=== PATIENT | male | born 1960 | race Caucasian/White ===

== ENCOUNTER → 2016-11-08 | Outpatient (CLI) | payer BC ==
[~2016-11-08] MED LIST: AMT10 PO; LORA-741 PO; LSN/2025 PO; MIRT15TA2 PO; OMEP40CA PO; OPTIRAY 320 IV PRN; SIMV10TA2 PO
--- NOTE | 2016-11-08 13:22 | DIAGNOSTIC IMAGING REPORT ---
CT SCAN OF THE CHEST, ABDOMEN, AND PELVIS WITH IV CONTRAST CLINICAL HISTORY: Pulmonary nodules. Hepatic nodules. COMPARISON STUDY: Chest x-ray dated 03/13/2014. Abdominal CT dated 10/28/2015. TECHNIQUE: Following the IV administration of 119 of Optiray 320, CT scan of the chest, abdomen, and pelvis was performed from the thoracic inlet to the proximal femora. Images are reviewed in the axial, sagittal, and coronal planes. IV contrast was administered without complication. Automated dose control exposure was utilized. CT DOSE: 897.00 mGy.cm FINDINGS: CHEST: Thyroid: Imaged portions of the thyroid gland are normal in size and attenuation. Thoracic aorta: The thoracic aorta is normal in caliber and demonstrates standard 3-vessel arch anatomy. No dissection is seen. Pulmonary vasculature: The pulmonary trunk is normal in caliber. There are no filling defects identified in the central pulmonary vessels to indicate pulmonary was. Note that this examination was not protocoled for evaluation of the pulmonary arteries. Heart: The heart is normal in size and configuration, and without pericardial effusion. There are coronary artery calcifications. Lungs and pleural spaces: There is no airspace consolidation or pleural effusion. Dependent atelectasis is observed. A 3 mm right lower lobe pulmonary nodule is seen on image #150. This is unchanged from 10/28/2015. There is a 3 mm focus of pleural based nodularity in the left lower lobe on image #121 along the major fissure. Trachea and central airways are clear. Mediastinum: There is no mediastinal lymphadenopathy. Elli: Clear. Axillae: There is no axillary lymphadenopathy. Bony thorax: No lytic or blastic lesions are identified. Arthritic change is noted in the shoulders. ABDOMEN AND PELVIS: Liver: The contrast-enhanced liver is normal in size and contour. The liver demonstrates diffusely diminished attenuation consistent with hepatic steatosis. Fatty sparing is noted adjacent to gallbladder fossa. There is an 8 mm indeterminate hypodensity in the left lobe of liver seen on image #79. This likely represents a cyst but is too small for definitive characterization, and this is unchanged from 10/28/2015. A 10 mm hypodensity in the left lobe seen on image #69 was better seen previously. This is most completely filled in with contrast on today's study. This lesion is indeterminant but likely represents a small flash filling hemangioma. There is no intrahepatic or ductal dilatation. The hepatic veins and portal veins are patent. Gallbladder: Unremarkable. Spleen: Normal in size and attenuation. Pancreas: Unremarkable. Adrenal glands: Unremarkable. Kidneys: The contrast enhanced kidneys are normal in size and without hydronephrosis. The kidneys enhance symmetrically. A subcentimeter cortical hypodensity in the lower pole of the left kidney on image #184 likely represents a cyst but is too small for definitive characterization. Abdominal vasculature: The abdominal aorta is normal in course and caliber noting scattered foci of atherosclerotic calcification. Stomach and bowel: There is a small hiatal hernia. The stomach and duodenum otherwise normal in configuration. No bowel obstruction is seen caliber. The appendix is not identified and reported surgically absent. Peritoneum: There is no intraperitoneal free air or abdominal ascites. There is a small fat-containing umbilical hernia. Lymphadenopathy: None. Pelvic viscera: The bladder, prostate, and seminal vesicles are normal as visualized. Surgical clips are noted along the spermatic cord bilaterally. Skeletal structures: No lytic or blastic lesions are seen. A large hemangioma is noted in the body of L3. IMPRESSION: 1. There is no airspace consolidation or pleural effusion. 2. There are 2 indeterminant but low suspicion pulmonary and pleural-based nodules as detailed above measuring up to 3 mm. The right lower lobe nodule is unchanged from the 10/28/2015 examination. The left lower lobe nodule was not included on the previous abdominal CT. These can be followed as per the Fleischner criteria if clinically warranted. See below. 3. Mild hepatic steatosis. 4. There are 2 indeterminant hypodensities in the left lobe of the liver which are incompletely characterized. The larger 10 mm lesion has largely filled in with IV contrast and although incompletely characterized this likely represents a small hemangioma. The 8 mm hypodensity likely represents a cyst but is too small for definitive characterization. These are of low suspicion. 5. No acute infectious or inflammatory findings are seen in the abdomen or pelvis. 6. Additional findings as above. Please refer to below summary of Fleischner criteria recommendations for follow-up of incidental CT nodules (Corry Mitchell, Guidelines for management of small pulmonary nodules detected on CT scans: A statement from the Fleischner Society, Radiology 237: [phone].) Low Risk Patient: Minimal or no smoking or other known risk factors for malignancy <=4 mm: No follow-up needed. >4-6 mm: Initial follow-up CT at 12 months; if unchanged, no further follow-up. >6-8 mm: Initial follow-up CT at 6-12 months then at 18-24 months if no change. >8 mm: Follow-up CT at \R\3, 9, 24 months, or PET and/or biopsy. High Risk Patient: History of smoking or other known risk factors <=4 mm: Follow-up at 12 months; if unchanged, no further follow-up. >4-6 mm: Initial follow-up CT at 6-12 months then at 18-24 months if no change. >6-8 mm: Initial follow-up CT at 3-6 months then at 9-12 and 24 months if no change. >8 mm: Same as low risk patient. Note: Nodule size measured as average of length and width. Ground glass or partly solid nodules may require longer follow-up to exclude indolent adenocarcinoma. Electronically signed by: Wil Rahman M.D. 11/08/2016 1:21 PM Dictated Date/Time: 11/08/2016 1:01 PM
== END | disposition home or self-care (01) ==
LOC: C.CTS 12:26
DX: R91.1 Solitary pulmonary nodule (principal); D13.4 Benign neoplasm of liver

== ENCOUNTER → 2017-05-07 | Outpatient (CLI) | payer BC ==
[~2017-05-07] MED LIST changes: -OPTIRAY 320 IV PRN
--- NOTE | 2017-05-07 11:26 | DIAGNOSTIC IMAGING REPORT ---
LEFT HAND MIN 3 VIEWS ROUTINE CLINICAL HISTORY: ARTHRITIS COMPARISON: None. DISCUSSION: The bony mineralization appears normal. No acute fractures are visualized. There are mild osteoarthritic type changes most pronounced the level of the proximal interphalangeal joints. There is a 2 mm particular calcification at the level of the proximal to phalangeal joint of the middle finger. There is no erosive disease. IMPRESSION: 1. No acute fractures 2. Mild osteoarthritic change 3. No evidence of erosive disease Electronically signed by: Mango Sweeney M.D. 05/07/2017 11:25 AM Dictated Date/Time: 05/07/2017 11:24 AM
--- NOTE | 2017-05-07 11:34 | DIAGNOSTIC IMAGING REPORT ---
RIGHT HAND MIN 3 VIEWS ROUTINE CLINICAL HISTORY: Arthritis. Right hand pain COMPARISON: None. DISCUSSION: No acute fractures are visualized. The bony mineralization appears normal. There is no erosive disease. There are mild osteoarthritic type changes most pronounced the level of the first metacarpal phalangeal joint and first carpal metacarpal joint. There is a tiny radiopaque foreign body located within the webspace between the first and second fingers. IMPRESSION: 1. No acute fractures 2. Mild degenerative change 3. No evidence of erosive disease 4. Tiny foreign body located within the webspace between the thumb and index finger. Electronically signed by: Mango Sweeney M.D. 05/07/2017 11:33 AM Dictated Date/Time: 05/07/2017 11:31 AM
== END | disposition home or self-care (01) ==
LOC: C.RAD1850 11:01
DX: M19.041 Primary osteoarthritis, right hand (principal); M19.042 Primary osteoarthritis, left hand

== ENCOUNTER → 2017-07-08 | Outpatient (CLI) | payer BC ==
--- NOTE | 2017-07-09 06:28 | PAP/PSG TECHNICIAN REPORT ---
[facility] Registered Dietician Polysomnogram Report Study name: None Report date: 07/09/2017 Study date: 07/08/2017 Referring Physician: Arley Espinoza MD Name: MADHAV TRINH Interpreting Physician: Awais Navarro M.D. Date of : 1960 Registered Dietician: Janny Cisneros RPSGT. Sex: Male Age: 56 Study Type: PSG Weight: 189.82 lbs Height: 56 years, Height 5' 8.5" BMI: 28.44 Medications: AMITRIPTYLINE 10 MG, CLONZEPAM 1 MG, LISINOPRIL-HYDOCHLOROTHIAZIDE 20-25 MG, MIRTAZAPINE 15 MG, OMEPRAZOLE 40 MG, RANITIDINE 300 MG, SIMVASTATIN 10 MG, VYVANSE 30 MG Patient History 56 yr-old male here for a baseline study. He has had previous sleep testing. He was found to have RLS and PLMs and was prescribed Clonazepam. He is continuing to have problems with polycythemia. He is back to assess any CM he may have. His Center scale is 7. The test was started on room air. ETCO2 testing was not utilized during this study. Room 3 Parameters Monitored NPSG: E1-M2, E2-M1, Fp1-M2, Fp2-M1, F3-M2, F4-M2, F4-M1, C3-M2, C4-M2, C4-M1, O1-M2, O2-M2, O2-M1, T3-M2, T4-M1, P3-M2, P4-M1, CHIN1, CHIN2, HR, EKG, Legs, PFLOW, SNOR, FLOW, CFLOW, Tidal Volume, THOR, ABDO, SpO2, PLTH, CPRESS, ETCO2 Wave, ETCO2, pH Sleep Architecture Sleep Stages Time at Lights Off 10:44:48 PM STAGES Time (min.) TST (%) Time at Lights On 5:29:18 AM Wake 35.5 -- Total Recording Time (TRT) 404.50 min. N1 62.0 17 Total Sleep Period (TSP) 386.5 min. N2 274.0 74 Total Sleep Time (TST) 369.0min. N3 0.0 0 Awake Time 35.5 min. REM 33.0 9 Wake after Sleep Onset 17.5 min. Sleep Efficiency (SE) 91 % Sleep Onset Latency (RIN) 18.0 min. Number of Stage 1 Shifts None Awakenings 19 Stage Changes 118 Number of REM periods 5 REM 33.0 9 REM Latency 269.0 min. NREM 336.0 91 Body Position Analysis Supine Right Left Side Prone Vertical Total Sleep Time (min.) 6.5 319.5 46.5 366.00 0.0 6.2 Total Sleep Time (%) 1% 87% 13% 99 0% N/A% Total Sleep Time REM (min.) 0.0 33.0 0.0 None 0.0 0.0 Total Sleep Time NREM (min.) 3.0 286.5 46.5 None 0.0 0.0 Intermittent Wake (min.) 3.5 20.2 5.6 None 0.0 6.2 Total Sleep Period (%) 2% None None None None None Arousals Myoclonus (PLM) * Events Count Index Events Count Index Spontaneous 32 5 Events Awake (PLMW) 30 50.7 Respiratory 0 0.0 Events Asleep w/ Arousal (PLMA) 55 8.9 PLM 55 9 Events Asleep w/o Arousal (PLMS) 85 13.8 Snoring 3 0 Total Asleep 140 22.8 Total 90 15 Total 170 25 Respiratory Analysis * CA OA MA CH H RERA Total Count 0 0 0 0 1 0 1 Index 0.0 0.0 0.0 0 0.2 0 0.2 Mean Duration 0.0 0.0 0.0 0.00 21.9 0.0 21.9 Longest Duration 0.0 0.0 0.0 0.00 0.0 0.0 21.9 Respiratory Event Summary Total Supine ~Supine Right Left Prone REM NREM Apneas Count 0 0 0 0 0 N/A 0 0 Index 0.0 0 0 0.0 0.0 N/A 0 0 Hypopneas (4% Desat) Count 1 0 1 1 0 N/A 0 1 Index 0.2 0.0 0 0.2 0.0 N/A 0.0 0.2 Apneas & All Hypopneas Count 1 0 1 1 0 N/A 0 1 Index 0.2 0 0 0 0 N/A 0.0 0.2 Respiratory Events (Hand Box Coverer+All Hyp+RERA) Count 1 0 1 1 0 N/A 0 1 Index 0.2 0 0 0.2 0.0 N/A 0.0 0.2 Respiratory Related Arousal Count 0 0 0 0 0 N/A 0 0 Index 0.0 0 0 0 0 N/A 0 0 Snoring Analysis Supine Right Left Prone REM NREM Total Snore duration 1.1 min Snores count 0 22 4 N/A 2 24 26 Snore mean duration 2.5 Sec Snores index 0 4 5 N/A 3.6 4.3 4.2 TST with snoring (%) 0.3% Desaturation Event Summary: Minimum %SpO2 Event Count Mean/Min/Max Duration(sec.) Desaturation Index % Time In Bed > 90 9 36.0 / 8.5 / 58.0 1.4 98.3 86 - 90 0 N/A 0.0 1.7 81 - 85 0 N/A 0.0 0.0 76 - 80 0 N/A 0.0 0.0 71 - 75 0 N/A 0.0 0.0 66 - 70 0 N/A 0.0 0.0 61 - 65 0 N/A 0.0 0.0 56 - 60 0 N/A 0.0 0.0 51 - 55 0 N/A 0.0 0.0 < 50 0 N/A 0.0 0.0 Total REM NREM Awake <50% 0.0 min. 0.0 min. 0.0 min. 0.0 min. 51 - 60% 0.0 min. 0.0 min. 0.0 min. 0.0 min. 61 - 70% 0.0 min. 0.0 min. 0.0 min. 0.0 min. 71 - 80% 0.0 min. 0.0 min. 0.0 min. 0.0 min. 81 - 90% 7.0 min. 0.4 min. 3.2 min. 3.3 min. 91 - 100% 397.4 min. 32.6 min. 332.6 min. 32.2 min. Average 93 94 93 93 Minimum SpO2 89 90 89 89 Desaturation Event Index 1.3 1.8 1.1 5.1 # Desat. Events below 89% N/A N/A N/A N/A Time(%) with Saturation below 89% 0.0 0.0 0.0 0.0 Time(min.) with Saturation below 89% 0.0 0.0 0.0 0.0 Time (mins) REM (mins) NREM (mins) % of TST SpO2 Below 90% 0 N/A N0 0.1 SpO2 Below 88% 0 0 0 0 Heart Rate Analysis Min (bpm) Max (bpm) Average (bpm) Awake 56 88 69 NREM 51 75 66 REM 57 69 62 Overall 51 75 65 Supplemental O2 Values Minimum O2 level: None Value Start Time End Time Registered Dietician Comments Mr. Trinh slept in the right, left, and supine positions. No cardiac arrhythmias were noted. PLMs were noted. No bruxism noted. Very little snoring was noted and scored as a 1 on a scale of 1 through 5. (0=no snoring, 5=snoring loud enough to be heard through a closed door or down the guy way). He did not wake up to use the restroom during the night. Mr. Trinh stated that he slept about the same as usual. The final report will be interpreted and signed by a sleep physician. The completed physician report will then be placed in the patient medical record. Therapy (cm H2O) 0 TIB (min.) 404.5 TST (min.) 369.0 Sleep Onset (min.) 18.0 REM Onset From Sleep (min.) 269.0 Sleep Efficiency % 91 Wakefulness (%) 9 Wakefulness (min.) 35.5 NREM 1 (%) 17 NREM 1 (min.) 62.0 NREM 2 (%) 74 NREM 2 (min.) 274.0 NREM 3 (%) 0 NREM 3 (min.) 0.0 REM (%) 9 REM (min.) 33.0 # Arousals 90 Arousal Index 15 # Snore 26 Snore Index 4.2 AHI 0.2 AHI Supine 0 AHI Non-Supine 0 NREM AHI 0.2 REM AHI 0.0 RDI 0.2 # Obstructive Apnea 0 # Central Apnea 0 # Mixed Apnea 0 # Hypopneas 1 RERAs 0 Total Respiratory Events 1 Time Below SpO2 89% (min.) 0.0 Mean NREM SpO2 (%) 93 Mean REM SpO2 (%) 94 Mean Sleep SpO2 (%) 93 Min NREM SpO2 (%) 89 Min REM SpO2 (%) 90 Position Supine (min.) 6.5 Position Non-supine (min.) 366.0 LM Index Sleep 22.8 LM Index NREM 23.9 LM Index REM 10.9 Mean Heart Rate (bpm) 65 Min Heart Rate (bpm) 51
--- NOTE | 2017-07-09 19:19 | POLYSOMNOGRAPH REPORT ---
CLINICAL DATA: A 56-year-old male with BMI of 28.4, referred by Dr. Arley Espinoza for evaluation of possible sleep apnea/nocturnal hypoxemia as a cause for polycythemia. He had a previous sleep study which showed PLMD/RLS and was prescribed clonazepam. He is still having problems with polycythemia. SLEEP ARCHITECTURE: Total sleep period was 386.5 minutes. Total sleep time was 369 minutes, divided between 336 minutes of non-REM sleep and 33 minutes of REM sleep. Sleep onset latency was 18 minutes. REM latency was 269 minutes. Sleep efficiency was 91%. Wake after sleep onset was 17.5 minutes. Sleep consisted of stage N1 17%, stage N2 74%, and REM 9%. AROUSAL DATA: 90 arousals were recorded for an index of 15 per hour. 55 were due to PLMs events. PLM DATA: Mild PLMD was noted. There are 140 limb movements during sleep noted for an index of 22.8 per hour with arousal index of 8.9 per hour. RESPIRATORY DATA: There was no evidence of sleep apnea seen. The AHI was 0.2. There was 1 hypopneic episode, 11.9 seconds in duration. OXIMETRY DATA: No hypoxemia was seen. Oxygen ronan was 89% during non-REM sleep. Mean saturation was 93%. There was no time below 88%. EKG: Heart rates ranged from 51-75 beats per minute. No arrhythmias were noted. PBX TEACHER'S COMMENTS: The patient slept in the right, left, and supine positions. Snoring was very mild, rated 1 on a scale of 1 through 5. PLMs were noted. IMPRESSION: 1. No evidence of clinically significant sleep apnea/hypopnea or nocturnal hypoxemia seen to explain the patient's polycythemia. 2. The patient continues to have mild periodic limb movement disorder. RECOMMENDATION: The patient should continue treatment for PLMD. MTDD
== END | disposition home or self-care (01) ==
LOC: C.NEUR 21:00
PROVIDERS: ATTEND Internal Medicine Hematology & Oncology
DX: G47.30 Sleep apnea, unspecified (principal)